=== PATIENT | female | born 1950 | race Caucasian/White ===

== ENCOUNTER 2022-06-24 15:54 | Outpatient (CLI) | payer MEDICARE, OTHER | END 2022-06-24 15:55 | disposition critical access hospital (66) | LOC: EMS 15:54 | DX: R11.2 Nausea with vomiting, unspecified (principal); R53.1 Weakness; R41.82 Altered mental status, unspecified; R46.4 Slowness and poor responsiveness | CPT/HCPCS: A0425; A0427 ==

== ENCOUNTER 2022-06-24 16:08 | Emergency (ER) | payer MEDICARE, OTHER ==
--- NOTE | 2022-06-24 16:15 | ED Physician Documentation ---
PD HPI FOCAL NEURO - Stated complaint Stated Complaint: CODE STROKE - History obtained from History obtained from: Patient, EMS - History of Present Illness Timing - onset: How many hours ago (10 25/2), Today Timing - duration: Hours (onset at 14:30 today while at rest. No fall nor injury.) Timing - details: Abrupt onset, Still present Severity of deficit: Moderate Weakness: Arm, Leg, Left Numbness: Arm, Leg, Left Associated symptoms: Headache (abrupt neck pain and headache right side at onset of symptoms.), Nausea / vomiting. No: Syncope, Fall, Head injury Contributing factors: negative: Anticoagulated, Vascular dz, Atrial fibrillation Baseline status: positive: A&OX3, ambulatory, indep Similar symptoms before: Has not had sx before Recently seen: Not recently seen (She is typically very healthy and takes no daily medicine has not been to her primary care for several years.) Review of Systems Constitutional: denies: Fever, Chills Nose: denies: Rhinorrhea / runny nose, Congestion Throat: denies: Sore throat Cardiac: denies: Chest pain / pressure Respiratory: denies: Dyspnea, Cough GI: reports: Nausea (just since onset of headache/weakness.), Vomiting. denies: Abdominal Pain Musculoskeletal: denies: Back pain, Extremity pain, Extremity swelling Neurologic: reports: Focal weakness Endocrine: denies: Weight loss Immunocompromised: denies: Immunocompromised PD PAST MEDICAL HISTORY - Past Medical History Cardiovascular: None Respiratory: None Neuro: None Endocrine/Autoimmune: None - Allergies Allergies/Adverse Reactions: Allergies Allergy/AdvReac Type Severity Reaction Status Date / Time No Known Drug Allergies Allergy Verified 06/24/22 16:29 - Living Situation Living Situation: reports: With spouse/s.o. Living Arrangement: reports: At home - Social History Does the pt smoke?: No Does the pt drink ETOH?: No Does the pt have substance abuse?: No - Family History Family history: denies: Cerebral aneurysm - POLST POLST Status: Full Code PD ED PE NORMAL - Vitals Vital signs reviewed: Yes - General General: Alert and oriented X 3 (She is able to open her eyes to verbal direction and answer questions and follow commands. She is oriented. She does seem slightly somnolent.), Well developed/nourished - HEENT HEENT: Atraumatic, Moist mucous membranes, Pharynx benign, Other (normal gag reflex.) - Neck Neck: Supple, no meningeal sign, No adenopathy, No bruit - Cardiac Cardiac: RRR, No murmur - Respiratory Respiratory: No respiratory distress, Clear bilaterally - Abdomen Abdomen: Soft, Non tender - Female Female : Deferred - Rectal Rectal: Deferred - Derm Derm: Normal color, Warm and dry - Neuro Neuro: Alert and oriented X 3, Normal speech, Other (Left arm moderate weakness in left leg mild weakness. Faint right facial droop. Normal vision. Symmetric sensation on the face.) Eye Opening: To Voice Motor: Obeys Commands Verbal: Oriented GCS Score: 14 - Psych Psych: No: Normal affect (somewhat blunted) NIHSS - Level of Consciousness Level of consciousness: (0) Alert, Keenly responsive LOC Questions: (0) Answers both Q's correct LOC Commands: (0) Performs both correctly - Gaze Best Gaze: (0) Normal - Visual Visual: (0) No loss - Facial Palsy Facial Palsy: (1) Minor paralysis - Motor Arms (both separate) Motor Arm (right): (0) No drift Motor Arm (left): (1) Drift - Motor Legs (both separate) Motor Leg (right): (0) No drift Motor Leg (left): (1) Drift - Limb Ataxia Limb Ataxia: (2) Present in 2 limbs - Sensory Sensory: (0) Normal - Best Language Best Language: (0) No aphasia - Dysarthria Dysarthria: (1) [id number]-fievwghr dysarthria - Extinction and Inattention (formally neg Extinction and inattention: (0) No abnormality - Total Score/Results Total Score/Result: 6 Results - Vitals Vitals: Vital Signs - 24 hr 06/24/22 06/24/22 06/24/22 16:08 16:41 17:03 Temperature 36.0 C L Heart Rate 70 66 74 Respiratory 19 15 17 Rate Blood Pressure 195/76 H 182/80 H 169/77 H O2 Saturation 99 97 97 Oxygen O2 Source Nasal cannula - EKG (time done) 16:28 Rate: Rate (enter#) (68) Rhythm: NSR Cade: Normal Intervals: Normal TX, Prolonged QT QRS: Normal Ischemia: Normal ST segments. No: ST elevation c/w ischemia, ST depression - Labs Labs: Laboratory Tests 0806/24/22 06/24/22 16:34 16:34 16:34 WBC 10.8 RBC 4.39 Hgb 14.3 Hct 42.1 MCV 95.9 MCH 32.6 H MCHC 34.0 RDW 12.3 Plt Count 237 MPV 9.4 Neut # (Auto) 8.3 H Lymph # (Auto) 1.8 Vance # (Auto) 0.6 Eos # (Auto) 0.1 Baso # (Auto) 0.0 Absolute Nucleated RBC 0.00 Nucleated RBC % 0.0 PT 12.3 INR 1.1 Sodium 135 Potassium 3.7 Chloride 98 L Carbon Dioxide 26 Anion Gap 11.0 BUN 17 Creatinine 0.6 Estimated GFR (MDRD) 98 Glucose 133 H POC Whole Bld Glucose Calcium 9.0 Magnesium 1.8 Total Bilirubin 0.4 AST 24 ALT 19 Alkaline Phosphatase 63 Total Protein 6.6 L Albumin 3.7 Globulin 2.9 Albumin/Globulin Ratio 1.3 Lipase 39 06/24/22 16:36 WBC RBC Hgb Hct MCV MCH MCHC RDW Plt Count MPV Neut # (Auto) Lymph # (Auto) Vance # (Auto) Eos # (Auto) Baso # (Auto) Absolute Nucleated RBC Nucleated RBC % PT INR Sodium Potassium Chloride Carbon Dioxide Anion Gap BUN Creatinine Estimated GFR (MDRD) Glucose POC Whole Bld Glucose 130 H Calcium Magnesium Total Bilirubin AST ALT Alkaline Phosphatase Total Protein Albumin Globulin Albumin/Globulin Ratio Lipase - Rads (name of study) head CT Radiology: Prelim report reviewed (large right subarachnoid hemorrhage. ), See rad report angio head/neck Radiology: Other (results pending at this time. ) PD MEDICAL DECISION MAKING - ED course Complexity details: reviewed results (Head CT showing large subarachnoid hemorrhage on the right side with minimal midline shift.), re-evaluated patient (Returned from CT and the patient is still slightly somnolent with eyes closed but opens her eyes to verbal and able to protrude her tongue well with normal gag and swallow.), considered differential (Abrupt neck and head pain with left- sided weakness and pain on the right. Most likely will be intercerebral bleed. Will assess for other problems as well. Immediate CT scan ordered), d/w patient, d/w document management consultant ([facility] transfer center states this is an auto accepted. I talked with Dennis Pires attending in the ER. He agrees with a nicardipine drip and states target for subarachnoid is 120 systolic. Medicine for pain as well.) ED course: The patient had been given a dose of Zofran for nausea as well as morphine for headache. EKG is showing mild QT prolongation so we will reach for other antiemetics if needed. I conveyed this to [facility]. Also conveyed the target blood pressure with nicardipine of 120 systolic. - Critical Care Time(min): 45 Time Includes: Direct patient care, Reassess patient, Medical consult, Family c onsult for tx dec Data interpretation: Labs Procedures excluded from critical care time: EKG Departure - Departure Disposition: 02 Transfer Acute Care Hosp Clinical Impression: Subarachnoid hemorrhage, nontraumatic, Left-sided weakness Condition: Stable Record reviewed to determine appropriate education?: Yes
--- NOTE | 2022-06-24 16:28 | CT Report ---
PROCEDURE: CT head W/O Stroke Protocol INDICATIONS: right neck pain/RODRIGUEZ, left arm weak abrupt TECHNIQUE: Noncontrast 4.5 mm thick angled axial sections acquired from the foramen magnum to the vertex, with c oronal reformats. For radiation dose reduction, the following was used: automated exposure control, adjustment of mA and/or kV according to patient size. COMPARISON: FINDINGS: Image quality: Excellent. Large subarachnoid hemorrhage centered in the right sylvian cistern fills the suprasellar space and t he interhemispheric cisterns as well.. No evidence of parenchymal hemorrhage. The 4 mm of midline glenna ft present. Atrophy and chronic ischemic change associated with old lacunar infarct in the right basal ganglia. IMPRESSION: 1. Large subarachnoid hemorrhage centered in the right sylvian fissure associated with 4 mm of midlin e shift. This study fulfills neurological imaging criteria for inclusion or exclusion of acute stroke therapie s based on available published neurological imaging guidelines. Note: Critical results were discussed with Dr. Rob at 3:26 PM AK time on 06/24/2022 Reviewed by: Azam Peterson MD on 06/24/2022 3:26 PM AKDT Approved by: Azam Peterson MD on 06/24/2022 3:26 PM AKDT Station ID: [id number]
[2022-06-24] MEDS ORDERED: MORPHINE 2 MG/ML CARPUJECT IVP STA (16:31)
[2022-06-24] MEDS ORDERED: ONDANSETRON 4 MG/2 ML VIAL IVP STA (16:31)
--- NOTE | 2022-06-24 16:38 | CT Report ---
PROCEDURE: ANGIO NECK W INDICATIONS: right neck pain, left arm weak abrupt CONTRAST: IV CONTRAST: Optiray 320 ml: 80 PO CONTRAST: *NO PO CONTRAST TECHNIQUE: After the administration of intravenous contrast, 1.5 mm axial sections acquired from the aortic arch to the [place] of [place]. Coronal 3-D maximum intensity projection (MIP) and/or volume rendering ref ormats were then performed. For radiation dose reduction, the following was used: automated exposur e control, adjustment of mA and/or kV according to patient size. COMPARISON: Correlation is made with the prior noncontrast head CT, 06/24/2022. Correlation is also m shama with the prior head CT angiogram, 06/24/2022. FINDINGS: Image quality: Excellent. Carotid system: The great vessels demonstrate a conventional anatomy as they arise from the aortic a rch. The origins of the common carotid arteries appear patent. The common carotid arteries demonstr ate normal calibers and courses. Focal moderate atherosclerotic calcification can be seen involving t he right carotid bifurcation region. No hemodynamically significant stenosis is seen on either side. The internal carotid arteries demonstrate normal caliber and course. Posterior circulation: The origins of the vertebral arteries appear patent. The more superior porti ons of the vertebral arteries demonstrate normal course and caliber. They join to form a normal appe aring basilar artery. Soft tissues: Visualized neck soft tissues demonstrate no suspicious abnormalities. A 1.7 cm right thyroid nodule can be seen. Bones: No suspicious bony lesions. Visualized cervical spine appears normally aligned. Focal C5-C 6 degenerative change is seen, with moderate disc space narrowing. IMPRESSION: No hemodynamically significant stenosis can be seen within the arteries of the neck. Focal C5-C6 degenerative change noted. 1.7 cm right thyroid nodule incidentally noted. When clinically appropriate, please consider a follow -up thyroid ultrasound for further evaluation. The estimate of stenosis included in the report of the imaging study was calculated using the NASCET method Reviewed by: Alverto Donnelly MD on 06/24/2022 3:37 PM DIONNA Approved by: Alverto Donnelly MD on 06/24/2022 3:37 PM DIONNA Station ID: [id number]
[2022-06-24] MEDS ORDERED: NICARDIPINE HCL 25 MG in SODIUM CHLORIDE 0.9% 240 ML IV STA (16:39)
[2022-06-24 16:41] LABS: BASOPHILS % (AUTO) 0.3 %; EOSINOPHILS # (AUTO) 0.1 10^3/uL (0.0-0.7); EOSINOPHILS % (AUTO) 0.6 %; HCT - HEMATOCRIT 42.1 % (37.0-47.0); HGB - HEMOGLOBIN 14.3 g/dL (12.0-16.0); LYMPHOCYTES # (AUTO) 1.8 10^3/uL (1.5-3.5); LYMPHOCYTES % (AUTO) 16.8 %; MEAN CORPUSCULAR HEMOGLOBIN 32.6 pg (27.0-31.0); MEAN CORPUSCULAR VOLUME 95.9 fL (81.0-99.0); MEAN PLATELET VOLUME 9.4 fL (7.9-10.8); MONOCYTES # (AUTO) 0.6 10^3/uL (0.0-1.0); MONOCYTES % (AUTO) 5.5 %; NEUTROPHILS # (AUTO) 8.3 10^3/uL (1.5-6.6); NEUTROPHILS % (AUTO) 76.2 %; PLT - PLATELET COUNT 237 10^3/uL (130-450); RED BLOOD COUNT 4.39 10^6/uL (4.20-5.40); RED CELL DISTRIBUTION WIDTH 12.3 % (12.0-15.0); WHITE BLOOD COUNT 10.8 x10^3/uL (4.8-10.8)
--- NOTE | 2022-06-24 16:43 | CT Report ---
PROCEDURE: ANGIO HEAD W/WO INDICATIONS: right neck pain/RODRIGUEZ, left arm weak abrupt CONTRAST: IV CONTRAST: Optiray 320 ml: 80 PO CONTRAST: *NO PO CONTRAST TECHNIQUE: Precontrast 4.5 mm thick angled axial sections acquired from the foramen magnum to the vertex. Afte r the administration of intravenous contrast, 1 mm thick sections acquired through the [place] of [place] is. Postcontrast 4.5 mm thick sections then re-acquired from the foramen magnum to the vertex. 3-di mensional xjrwgva-krlshjwol-yrcskmmaow (MIP) and/or volume rendering reformats were acquired of the c entral intracranial vasculature. For radiation dose reduction, the following was used: automated ex posure control, adjustment of mA and/or kV according to patient size. COMPARISON: Correlation is made with the accompanying noncontrast head CT as well as the accompanyin g head CT angiogram, 06/24/2022. FINDINGS: Image quality: Excellent. Anterior circulation: There is a lobulated aneurysm seen involving the right MCA trifurcation region , as on series 6 image 82 and on series 13 image 72 7measuring up to 7 mm. Intracranial internal carotid arteries are normal in size and flow. The flow within the paired anter ior cerebral arteries is normal and symmetric. The flow within the middle cerebral arteries is other lezama normal and symmetric. The anterior communicating artery is seen. No aneurysms are seen. Posterior circulation: Visualized portions of the vertebral arteries demonstrate normal caliber, and join to form a normal appearing basilar artery. Flow within the posterior cerebral arteries is norm al and symmetric. No aneurysms are seen. CSF spaces: Ventricles are normal in size and shape. Basal cisterns are patent. No extra-axial flu id collections. Brain: A large amount of right-sided subarachnoid hemorrhage can be seen. On these images, no findin gs of active extravasation can be seen. No midline shift. No intracranial masses. Tanner-white matter interface appears intact. Skull and face: Calvarium and facial bones appear intact, without suspicious lesions. Sinuses: Visualized sinuses and mastoids are clear. 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 Reviewed by: Alverto Donnelly MD on 06/24/2022 3:41 PM AKDT Approved by: Alverto Donnelly MD on 06/24/2022 3:41 PM DIONNA Station ID: [id number]
[2022-06-24 16:45] LABS: INR 1.1 (0.8-1.2); PT - PROTHROMBIN TIME 12.3 secs (9.9-12.6)
[2022-06-24 16:52] LABS: ALBUMIN 3.7 g/dL (3.2-5.5); ALBUMIN/GLOBULIN RATIO 1.3 (1.0-2.2); BILIRUBIN,TOTAL 0.4 mg/dL (0.2-1.0); CREATININE 0.6 mg/dL (0.4-1.0); MAGNESIUM 1.8 mg/dL (1.7-2.8); POTASSIUM 3.7 mmol/L (3.5-5.0); TOTAL PROTEIN 6.6 g/dL (6.7-8.2)
[2022-06-24] MEDS ORDERED: HYDROmorphone 0.5 MG/0.5 ML SYRINGE IVP STA (16:59)
[2022-06-24 17:07] VITALS: BP 169/77
== END 2022-06-24 17:17 | disposition short-term general hospital (02) ==
LOC: ED 16:08
DX: I60.9 Nontraumatic subarachnoid hemorrhage, unspecified (principal); R53.1 Weakness; I45.81 Long QT syndrome; R11.0 Nausea; Z20.822 Contact with and (suspected) exposure to COVID-19
CPT/HCPCS: 36415; 70450; 70496; 70498; 80053; 83690; 83735; 85025; 85610; 87635; 93005; 96374; 96375; 99285; 99291; J1170; Q9967

== ENCOUNTER 2022-08-31 09:30 | Outpatient (CLI) | payer MEDICARE, OTHER ==
[2022-08-31 09:58] LABS: CREATININE 0.6 mg/dL (0.4-1.0)
[2022-08-31] MEDS ORDERED: iohexoL-300 100 ML VIAL ONE (10:43)
[2022-08-31] MEDS ORDERED: iohexoL-300 100 ML VIAL IVP ONE (11:17)
--- NOTE | 2022-08-31 14:51 | CT Report ---
PROCEDURE: ANGIO HEAD W/WO INDICATIONS: CEREBRAL ANEURYSM CONTRAST: 80 ml omnipaque 300 TECHNIQUE: Precontrast 4.5 mm thick angled axial sections acquired from the foramen magnum to the vertex. Afte r the administration of intravenous contrast, 1 mm thick sections acquired through the [place] of [place] is. Postcontrast 4.5 mm thick sections then re-acquired from the foramen magnum to the vertex. 3-di mensional gkoruop-diuifhrxe-ghgozckpph (MIP) and/or volume rendering reformats were acquired of the c entral intracranial vasculature. For radiation dose reduction, the following was used: automated ex posure control, adjustment of mA and/or kV according to patient size. COMPARISON: CTA head and neck 06/24/2022 FINDINGS: Image quality: Excellent. Anterior circulation: Intracranial internal carotid arteries are normal in size and flow. The flow within the paired anterior cerebral arteries is normal and symmetric. There has been interval repair of the previously identified right MCA trifurcation aneurysm. No new aneurysms are identified. The an terior communicating artery is seen. No aneurysms are seen. Posterior circulation: Visualized portions of the vertebral arteries demonstrate normal caliber, and join to form a normal appearing basilar artery. Flow within the posterior cerebral arteries is norm al and symmetric. No aneurysms are seen. The ventricular system and cortical sulci demonstrate atrophy, consistent for patient's stated age. There are areas of hypodensity in the periventricular and subcortical white matter. There is no acut e intra or extra-axial fluid collection. No acute hemorrhage, mass lesion or midline shift. Brainst em is unremarkable. Globes are symmetrical. Sinuses are aerated. Right frontal temporal craniotomy changes are present. IMPRESSION: Interval repair of previous right MCA aneurysm. No new aneurysms are identified. Reviewed by: Daksha Temple MD on 08/31/2022 2:50 PM PST Approved by: Daksha Temple MD on 08/31/2022 2:50 PM PST Station ID: [id number]
== END 2022-08-31 09:31 | disposition home or self-care (01) ==
LOC: LAB 09:30
PROVIDERS: ATTEND Physician Assistant
DX: Z01.812 Encounter for preprocedural laboratory examination (principal); Z09 Encounter for follow-up examination after completed treatment for conditions other than malignant neoplasm; Z86.79 Personal history of other diseases of the circulatory system
CPT/HCPCS: 36415; 70496; 82565; Q9967

== ENCOUNTER 2023-05-07 10:04 | Outpatient (CLI) | payer MEDICARE, OTHER ==
[2023-05-07 10:21] LABS: BASOPHILS # (AUTO) 0.1 10^3/uL (0.0-0.1); BASOPHILS % (AUTO) 0.7 %; EOSINOPHILS # (AUTO) 0.1 10^3/uL (0.0-0.7); EOSINOPHILS % (AUTO) 1.9 %; HCT - HEMATOCRIT 45.3 % (37.0-47.0); HGB - HEMOGLOBIN 14.7 g/dL (12.0-16.0); LYMPHOCYTES # (AUTO) 2.6 10^3/uL (1.5-3.5); LYMPHOCYTES % (AUTO) 35.1 %; MEAN CORPUSCULAR HEMOGLOBIN 30.8 pg (27.0-31.0); MEAN CORPUSCULAR HGB CONC 32.5 g/dL (32.0-36.0); MEAN CORPUSCULAR VOLUME 94.8 fL (81.0-99.0); MEAN PLATELET VOLUME 9.3 fL (7.9-10.8); MONOCYTES # (AUTO) 0.6 10^3/uL (0.0-1.0); MONOCYTES % (AUTO) 7.8 %; NEUTROPHILS # (AUTO) 4.1 10^3/uL (1.5-6.6); NEUTROPHILS % (AUTO) 54.4 %; PLT - PLATELET COUNT 258 10^3/uL (130-450); RED BLOOD COUNT 4.78 10^6/uL (4.20-5.40); RED CELL DISTRIBUTION WIDTH 12.4 % (12.0-15.0); WHITE BLOOD COUNT 7.5 x10^3/uL (4.8-10.8)
[2023-05-07 10:40] LABS: % IRON SATURATION 36 % (20-50); IRON 149 ug/dL (28-170); TOTAL IRON BINDING CAPACITY 414 ug/dL (250-450); TRANSFERRIN 296 mg/dL (192-382)
[2023-05-07 10:57] LABS: FERRITIN 54.3 ng/mL (11.0-306.8)
== END 2023-05-07 10:05 | disposition home or self-care (01) ==
LOC: LAB 10:04
PROVIDERS: ATTEND Internal Medicine
DX: M62.81 Muscle weakness (generalized) (principal); Z13.0 Encounter for screening for diseases of the blood and blood-forming organs and certain disorders involving the immune mechanism
CPT/HCPCS: 36415; 82607; 82728; 83540; 84466; 85025

== ENCOUNTER 2024-01-05 07:38 | Outpatient (CLI) | payer MEDICARE, OTHER ==
[2024-01-05 07:54] LABS: BASOPHILS # (AUTO) 0.1 10^3/uL (0.0-0.1); BASOPHILS % (AUTO) 0.7 %; EOSINOPHILS # (AUTO) 0.2 10^3/uL (0.0-0.7); EOSINOPHILS % (AUTO) 2.9 %; HCT - HEMATOCRIT 43.5 % (37.0-47.0); HGB - HEMOGLOBIN 14.5 g/dL (12.0-16.0); LYMPHOCYTES % (AUTO) 39.8 %; MEAN CORPUSCULAR HEMOGLOBIN 31.8 pg (27.0-31.0); MEAN CORPUSCULAR HGB CONC 33.3 g/dL (32.0-36.0); MEAN CORPUSCULAR VOLUME 95.4 fL (81.0-99.0); MEAN PLATELET VOLUME 9.4 fL (7.9-10.8); MONOCYTES # (AUTO) 0.5 10^3/uL (0.0-1.0); MONOCYTES % (AUTO) 7.2 %; NEUTROPHILS # (AUTO) 3.7 10^3/uL (1.5-6.6); NEUTROPHILS % (AUTO) 49.3 %; PLT - PLATELET COUNT 269 10^3/uL (130-450); RED BLOOD COUNT 4.56 10^6/uL (4.20-5.40); RED CELL DISTRIBUTION WIDTH 12.5 % (12.0-15.0); WHITE BLOOD COUNT 7.5 x10^3/uL (4.8-10.8)
[2024-01-05 08:07] LABS: ALBUMIN 4.1 g/dL (3.2-5.5); ALBUMIN/GLOBULIN RATIO 1.5 (1.0-2.2); ALKALINE PHOSPHATASE 67 IU/L (42-121); ALT ALANINE AMINOTRANSFERASE 11 IU/L (10-60); AST ASPARTATE AMINOTRANSFERASE 15 IU/L (10-42); BILIRUBIN,TOTAL 0.7 mg/dL (0.2-1.0); BUN - BLOOD UREA NITROGEN 17 mg/dL (6-20); CALCIUM 9.4 mg/dL (8.5-10.3); CARBON DIOXIDE - CO2 31 mmol/L (21-32); CHLORIDE 104 mmol/L (101-111); CHOL/HDL RATIO 3.1 (<4.4); CHOLESTEROL 219 mg/dL; CREATININE 0.7 mg/dL (0.6-1.3); GFR - MDRD 82 (>89); GLUCOSE 91 mg/dL (74-104); HDL CHOLESTEROL 70 mg/dL; LDL CHOLESTEROL,CALCULATED 129 mg/dL; LDL/HDL RATIO 1.8 (<4.4); SODIUM 140 mmol/L (135-145); TOTAL PROTEIN 6.8 g/dL (6.4-8.9); TRIGLYCERIDES 99 mg/dL (48-352); VLDL CHOLESTEROL 20 mg/dL
== END 2024-01-05 07:39 | disposition home or self-care (01) ==
LOC: LAB 07:38
PROVIDERS: ATTEND Internal Medicine
DX: Z13.228 Encounter for screening for other metabolic disorders (principal); Z13.220 Encounter for screening for lipoid disorders; Z13.0 Encounter for screening for diseases of the blood and blood-forming organs and certain disorders involving the immune mechanism
CPT/HCPCS: 36415; 80053; 80061; 83721; 85025